=== PATIENT | female | born 1980 | race Caucasian/White ===

== ENCOUNTER 2018-08-05 10:13 | Outpatient (REF) | payer BC, SELFPAY | END 2018-08-05 10:33 | LOC: LBN 10:13 | PROVIDERS: PCP Family Medicine; Visit Provider Emergency Medicine | DX: J06.9 Acute upper respiratory infection, unspecified (principal) | CPT/HCPCS: 87449 ==

== ENCOUNTER 2018-08-27 18:08 | Emergency (ER) | payer BC, SELFPAY ==
[2018-08-27 18:32] VITALS: BP 140/93; PULSE 80; RESP 16; TEMP 36.6
--- NOTE | 2018-08-27 18:37 | W.ED.GENAD ---
Discharge Plan Disposition Patient Disposition: HOME Condition: Good Discharge Details Chief Complaint: Urinary Clinical Impression: Abdominal pain, Ovarian cyst Reason For Visit: urinary symptoms Primary Care Provider: Romaine Charles ED Provider: Miguel Henry Home Meds and New Rx's Prescriptions: Continued Centrum Complete 1 EACH tablet 1 tab-cap PO DAILY RF: 0 omega 4-ert-uut-fish oil [Fish Oil] 1,000 MG capsule 1,000 mg PO DAILY RF: 0 losartan 50 MG tablet 50 mg PO DAILY Qty: 90 RF: 4 fluoxetine 20 MG capsule 20 mg PO DAILY Qty: 90 RF: 4 valacyclovir 1,000 MG tablet 1,000 mg PO PRN PRNRF: 0 Discharge Instructions Instructions: Ovarian Cyst (ED), Abdominal Pain (ED) Additional Instructions: Your laboratory studies, urinalysis, CT scan are unremarkable. There is suggestion of a right ovarian cyst measuring about 4-1/2 cm. Use ibuprofen 4-600 mg 3 times a day with food for the next few days. Follow-up in [facility] next week. Return to emergency department if you develop fever, vomiting, worsening pain. Referrals: [facility] [place] [place] [Provider Group] Medical Decision Making Patient's urinalysis is negative for infection. She seems to be quite tender in the lower quadrants right greater than left. She is also tender suprapubic. She is not . She denies vaginal discharge or odor. For now will defer pelvic exam. Will place IV and check labs. Get CT scan the abdomen pelvis to rule out appendicitis. If everything returns negative will need to consider pelvic exam. Patient does not have an elevated white count. Hemoglobin is fine. Chemistries and belly labs are normal. CT scan shows a normal appendix. She also has normal gallbladder. She has a presumed 4.3 cm right ovarian cyst. No evidence of free fluid or rupture. Patient. She declines pelvic exam and will follow up with [facility]. She is pretty comfortable and wants to go home to eat. I do not think she has infection, torsion, ruptured cyst. We will have her use ibuprofen 3 times a day for the next few days and contact [facility] for follow-up. Lab Data Lab results reviewed: Yes I reviewed the patient's lab results. HPI General Mode of arrival: ambulatory. Date/Time Provider Initiated Documentation: 08/27/18 18:37. Limitations to Documentation: no limitations. Information obtained by: patient. HPI Narrative: Patient presents to ED with complaints of urinary urgency, frequency, abdominal pain and back pain. Symptoms started over the weekend but have got worse. Today at work she did a urine dipstick which was positive for blood and leukocytes. She does not really report dysuria although urinating causes increased pain in her abdomen and back. She does have urgency. She has had no fever or chills. She is eating and drinking fine. She has no nausea vomiting. She has no vaginal discharge or bleeding. Related Data Home Medications Medication Instructions Recorded Confirmed Centrum Complete 1 tab-cap PO DAILY tab-cap 03/23/15 08/27/18 omega 1-ggs-eul-fish oil [Fish Oil] 1,000 mg PO DAILY 07/02/16 08/27/18 fluoxetine 20 mg PO DAILY #90 tab-cap 09/05/17 08/27/18 losartan 50 mg PO DAILY #90 tab-cap 09/05/17 08/27/18 valacyclovir 1,000 mg PO PRN PRN 08/27/18 08/27/18 Previous Rx's Medication Instructions Recorded fluoxetine 20 mg PO DAILY #90 tab-cap 09/05/17 losartan 50 mg PO DAILY #90 tab-cap 09/05/17 Allergies Allergy/AdvReac Type Severity Reaction Status Date / Time oxycodone HCl [From Percocet] Allergy Intermediate HIVES, Verified 08/05/18 09:14 rash & hallucinations Review of Systems Constitutional Denies chills, Denies fever(s), Denies headache(s) and Denies weakness Eyes Denies eye discharge and Denies eye pain ENT Denies otalgia, Denies facial pain, Denies headache(s), Denies neck pain and Denies sore throat Cardiovascular Denies chest pain, Denies syncope, Denies edema and Denies dyspnea Respiratory Denies cough and Denies dyspnea Gastrointestinal Reports abdominal pain, Denies diarrhea, Denies nausea and Denies vomiting Genitourinary Denies hematuria, Reports urinary frequency, Denies genital lesions, Reports dysuria, Reports pelvic pain, Denies flank pain, Denies urinary hesitancy, Reports urinary urgency, Denies vaginal discharge and Denies vaginal odor Musculoskeletal Reports back pain, Denies neck pain and Denies numbness Integumentary/Breasts Denies rash Neurologic Denies syncope, Denies headache(s), Denies numbness and Denies weakness [facility] Medical History Abnormal Pap smear of cervix (~2009) Surgical History section Ligation of fallopian tube Family History Mother Alcohol abuse Essential hypertension Depression Heart disease Father Essential hypertension Heart disease Hyperlipidemia Sister Heart disease Sister No problems noted. Sister No problems noted. Brother Heart disease Brother Heart disease Brother Heart disease Brother Heart disease Grandfather Heart disease Neoplasm Grandfather Heart disease Myocardial infarction Grandmother Alcohol abuse Suicide Grandmother No problems noted. Son No problems noted. Daughter No problems noted. Maternal Uncle Neoplasm Social History Smoking and Tabacco status: Former Tobacco Use Exam Const General: cooperative and no acute distress Orientation: alert and oriented x3 HENMT Head: normocephalic and atraumatic Mouth: moist mucous membranes Neck Neck: normal visual inspection, trachea midline and supple Resp Effort & Inspection: normal respiratory effort Auscultation: clear to auscultation bilaterally Cardio Rate: regular rate Rhythm: regular rhythm Heart Sounds: S1 normal and S2 normal GI Inspection: normal to inspection and non-distended Palpation: soft, not firm, guarding in the LLQ and in the RLQ and tender in the LLQ, in the RLQ and suprapubicly; with no rebound tenderness and Rovsing's sign negative Back/Spine/Pelvis Back: no CVA tenderness Skin Rashes: no rashes Neuro General: alert, oriented x3, no focal motor deficits and CN's II-XI intact bilaterally Extrem General: normal to inspection and no clubbing, cyanosis or edema
--- NOTE | 2018-08-27 18:40 | ED.GENADUL_ITS ---
Discharge Plan Disposition Patient Disposition: HOME Condition: Good Discharge Details Chief Complaint: Urinary Clinical Impression: Abdominal pain, Ovarian cyst Reason For Visit: urinary symptoms Primary Care Provider: Romaine Charles ED Provider: Miguel Henry Home Meds and New Rx's Prescriptions: Continued Centrum Complete 1 EACH tablet 1 tab-cap PO DAILY RF: 0 omega 4-cdq-ssj-fish oil [Fish Oil] 1,000 MG capsule 1,000 mg PO DAILY RF: 0 losartan 50 MG tablet 50 mg PO DAILY Qty: 90 RF: 4 fluoxetine 20 MG capsule 20 mg PO DAILY Qty: 90 RF: 4 valacyclovir 1,000 MG tablet 1,000 mg PO PRN PRNRF: 0 Discharge Instructions Instructions: Ovarian Cyst (ED), Abdominal Pain (ED) Additional Instructions: Your laboratory studies, urinalysis, CT scan are unremarkable. There is suggestion of a right ovarian cyst measuring about 4-1/2 cm. Use ibuprofen 4- 600 mg 3 times a day with food for the next few days. [facility] next week. Return to emergency department if you develop fever, vo miting, worsening pain. [facility] Medical Decision Making Patient's urinalysis is negative for infection. She seems to be quite tender in the lower quadrants right greater than left. She is also tender suprapubic. She is not . She denies vaginal discharge or odor. For now will defer pelvic exam. Will place IV and check labs. Get CT scan the abdomen pelvis to rule out appendicitis. If everything returns negative will need to consider pelvic exam. Patient does not have an elevated white count. Hemoglobin is fine. Chemistries and belly labs are normal. CT scan shows a normal appendix. She also has normal gallbladder. She has a presumed 4.3 cm right ovarian cyst. No evidence of free fluid or rupture. Patient. She declines pelvic exam and will follow up with [facility]. She is pretty comfortable and wants to go home to eat. I do not think she has infection, torsion, ruptured cyst. We will have her use ibuprofen 3 times a day for the next few days and contact [facility] for follow-up. Lab Data Lab results reviewed: Yes I reviewed the patient's lab results. HPI General Mode of arrival: ambulatory . Date/Time Provider Initiated Documentation: 08/27/18 18:37 . Limitations to Documentation: no limitations . Information obtained by: patient . HPI Narrative: Patient presents to ED with complaints of urinary urgency, frequency, abdominal pain and back pain. Symptoms started over the weekend but have got worse. Today at work she did a urine dipstick which was positive for blood and leukocytes. She does not really report dysuria although urinating causes increased pain in her abdomen and back. She does have urgency. She has had no fever or chills. She is eating and drinking fine. She has no nausea vomiting. She has no vaginal discharge or bleeding. Related Data Home Medications Medication Instructions Recorded Confirmed Centrum Complete 1 tab-cap PO DAILY tab-cap 03/23/15 08/27/18 omega 2-xtq-lem-fish oil [Fish Oil] 1,000 mg PO DAILY 07/02/16 08/27/18 fluoxetine 20 mg PO DAILY #90 tab-cap 09/05/17 08/27/18 losartan 50 mg PO DAILY #90 tab-cap 09/05/17 08/27/18 valacyclovir 1,000 mg PO PRN PRN 08/27/18 08/27/18 Previous Rx's Medication Instructions Recorded fluoxetine 20 mg PO DAILY #90 tab-cap 09/05/17 losartan 50 mg PO DAILY #90 tab-cap 09/05/17 Allergies Allergy/AdvReac Type Severity Reaction Status Date / Time oxycodone HCl [From Percocet] Allergy Intermediate HIVES, Verified 08/05/18 09:14 rash & hallucinations Review of Systems Constitutional Denies chills, Denies fever(s), Denies headache(s) and Denies weakness Eyes Denies eye discharge and Denies eye pain ENT Denies otalgia, Denies facial pain, Denies headache(s), Denies neck pain and Denies sore throat Cardiovascular Denies chest pain, Denies syncope, Denies edema and Denies dyspnea Respiratory Denies cough and Denies dyspnea Gastrointestinal Reports abdominal pain, Denies diarrhea, Denies nausea and Denies vomiting Genitourinary Denies hematuria, Reports urinary frequency, Denies genital lesions, Reports dysuria, Reports pelvic pain, Denies flank pain, Denies urinary hesitancy, Reports urinary urgency, Denies vaginal discharge and Denies vaginal odor Musculoskeletal Reports back pain, Denies neck pain and Denies numbness Integumentary/Breasts Denies rash Neurologic Denies syncope, Denies headache(s), Denies numbness and Denies weakness PFSH Medical History Abnormal Pap smear of cervix (~2009) Surgical History section Ligation of fallopian tube Family History Mother Alcohol abuse Essential hypertension Depression Heart disease Father Essential hypertension Heart disease Hyperlipidemia Sister Heart disease Sister No problems noted. Sister No problems noted. Brother Heart disease Brother Heart disease Brother Heart disease Brother Heart disease Grandfather Heart disease Neoplasm Grandfather Heart disease Myocardial infarction Grandmother Alcohol abuse Suicide Grandmother No problems noted. Son No problems noted. Daughter No problems noted. Maternal Uncle Neoplasm Social History Smoking and Tabacco status: Former Tobacco Use Exam Const General: cooperative and no acute distress Orientation: alert and oriented x3 HENMT Head: normocephalic and atraumatic Mouth: moist mucous membranes Neck Neck: normal visual inspection, trachea midline and supple Resp Effort & Inspection: normal respiratory effort Auscultation: clear to auscultation bilaterally Cardio Rate: regular rate Rhythm: regular rhythm Heart Sounds: S1 normal and S2 normal GI Inspection: normal to inspection and non-distended Palpation: soft, not firm, guarding in the LLQ and in the RLQ and tender in the LLQ, in the RLQ and suprapubicly; with no rebound tenderness and Rovsing's sign negative Back/Spine/Pelvis Back: no CVA tenderness Skin Rashes: no rashes Neuro General: alert, oriented x3, no focal motor deficits and CN's II-XI intact bilaterally Extrem General: normal to inspection and no clubbing, cyanosis or edema
[2018-08-27 18:41] LABS: Bilirubin Negative (Negative); Blood Negative (Negative); Clarity Clear; Glucose Negative (Negative); Ketones Negative (Negative); Leukocyte Esterase Trace (Negative); Nitrite Negative (Negative)
[2018-08-27 19:08] LABS: Bacteria Few HPF (Negative); C & S Indicated? No; Casts Negative LPF (Negative); Crystals Negative HPF (Negative); Epithelial Cells Moderate HPF (Negative); Mucus Negative (Negative); Other Cells Negative (Negative); RBC Negative (0-2)
[2018-08-27 19:51] LABS: Abs Immature Grans 0.03 k/cumm (0.0-0.09); Absolute Basophil Count 0.02 k/cumm (0.0-0.2); Absolute Lymphocyte Count 2.66 k/cumm (1.2-3.4); Absolute Monocyte Count 0.53 k/cumm (0.11-0.7); Absolute Neutrophil Count 4.86 k/cumm (1.2-6.7); Basophils % 0.2; Eosinophils % 2.4; HCT 42.6 % (36.0-46.0); HGB 14.6 g/dL (12.0-15.5); Immature Grans % 0.4; Mean Corp. HGB Concentration 34.3 g/dL (32.0-36.0); Mean Corpuscular Hemoglobin 33.3 pg (27.0-33.0); Mean Platelet Volume 9.5 fL (8.0-11.0); Monocytes % 6.4; Neutrophils % 58.6; Platelet Count 188 x1000/uL (130-400); RBC 4.39 m/cumm (4.00-5.20); RBC Distribution Width 12.2 % (11.7-14.6)
[2018-08-27 20:05] LABS: ALT 65 U/L (12-78); AST 33 U/L (15-37); Albumin 4.3 g/dL (3.4-5.0); Alkaline Phosphatase 77 U/L (46-116); Anion Gap 8.8 mmol/L (3-11); BUN 13 mg/dL (7-18); Bilirubin, Total 0.4 mg/dL (0.2-1.0); CO2 27.2 mmol/L (21.0-32.0); Chloride 102 mmol/L (98-107); Glucose 99 mg/dL (70-100); Lipase 230 U/L (73-393); Sodium 138 mmol/L (136-145); Total Protein 8.1 g/dL (6.4-8.2)
[2018-08-27 20:10] LABS: Calcium 9.7 mg/dL (8.5-10.1)
[2018-08-27] MEDS: Omnipaque 350 MG/ML 100 ML BTL IJ (20:23)
--- NOTE | 2018-08-27 20:26 | DI.CT_ITS ---
SYMPTOM/DIAGNOSIS: LOW ABDOMINAL PAIN WITH RLQ TENDERNESS CT ABDOMEN AND PELVIS: CT of the abdomen and pelvis was performed following the uneventful administration of intravenous contrast material. The visualized lung bases are clear. The liver is normal in size. No suspicious hepatic mass is seen. The portal, superior mesenteric and splenic veins are patent. The gallbladder appears contracted but no stones are seen. The biliary duct is unremarkable. The pancreas and spleen are unremarkable. There is a 1.1 cm low attenuation nodule on the left adrenal gland likely reflecting a benign lesion such as an adenoma. The right adrenal gland is unremarkable. The kidneys show normal and symmetric enhancement. No evidence of a solid renal mass or obstruction. The urinary bladder is intact. The reproductive organs are unremarkable except for a 4.3 cm right adnexal cyst likely ovarian. The bowel shows no evidence of obstruction or inflammation. There is a normal appendix present. The abdominal aorta is of normal caliber. No significant abdominal or pelvic adenopathy, ascites or pneumoperitoneum is seen. No acute osseous abnormalities identified. IMPRESSION: 4.3 cm right adnexal cystic lesion likely ovarian in origin. Follow up as clinically appropriate.
[2018-08-27 20:37] VITALS: BP 143/80; PULSE 90; RESP 16; TEMP 37; O2SAT 98
--- NOTE | 2018-08-27 20:43 | DI.VRAD_ITS ---
EXAM: CT Abdomen and Pelvis With Contrast EXAM DATE/TIME: 08/27/2018 7:38 PM CLINICAL HISTORY: 37 years old, female; Pain; Abdominal pain; Localized; Right lower quadrant (rlq); Prior surgery; Surgery date: 6+ months; Surgery type: Tubal ligation, TECHNIQUE: Axial computed tomography images of the abdomen and pelvis with intravenous contrast. All CT scans at this facility use at least one of these dose optimization techniques: automated exposure control; mA and/or kV adjustment per patient size (includes targeted exams where dose is matched to clinical indication); or iterative reconstruction. Coronal and sagittal reformatted images were created and reviewed. CONTRAST: Contrast Material: 100 ml of [id number]; Contrast Route: iv COMPARISON: US PELVIS TRANSVAG 09/23/2017 3:40 PM FINDINGS: Lower thorax: No acute findings. ABDOMEN: Liver: Hepatic steatosis. Gallbladder and bile ducts: Normal. No calcified stones. No ductal dilation. Pancreas: Normal. No ductal dilation. Spleen: Normal. No splenomegaly. Adrenals: Normal. No mass. Kidneys and ureters: Normal. No hydronephrosis. Stomach and bowel: Normal. No obstruction. No mucosal thickening. Appendix: No evidence of appendicitis. PELVIS: Bladder: Unremarkable as visualized. Reproductive: 4.3 cm right ovarian cyst suggested. ABDOMEN and PELVIS: Intraperitoneal space: Normal. No free air. No significant fluid collection. Bones/joints: No acute fracture. No dislocation. Soft tissues: Unremarkable. Vasculature: Normal. No abdominal aortic aneurysm. Lymph nodes: Normal. No enlarged lymph nodes. IMPRESSION: 4.3 cm right ovarian cyst suggested. Dictated and Authenticated by: Faisal Fields MD. Ordering:MARCIA Rivera MD
[2018-08-27 21:05] VITALS: BP 126/75; PULSE 90; RESP 16; TEMP 37; O2SAT 98
== END 2018-08-27 21:08 | disposition home or self-care (01) ==
PROVIDERS: Emergency Provider Emergency Medicine; PCP Family Medicine
DX: N83.201 Unspecified ovarian cyst, right side (principal); R10.30 Lower abdominal pain, unspecified
CPT/HCPCS: 36415; 80053; 81025; 83690; 99285; 74177; 81003; 81015; 85025; 99283; J3490

== ENCOUNTER 2020-03-17 10:27 | Outpatient (REF) | payer BC, SELFPAY ==
--- NOTE | 2020-03-17 10:00 | PAPFT_PTH ---
PATIENT: Laura Hobbs LOC: [facility] U#:[id number] AGE/SX: 39/F ROOM: RE03/17/[address]: DILLON Sarmiento : 1980 BED: DIS: 03/17/2020 SPEC #: [id number] RECD: 03/17/20 12:50 STATUS: BRODIE REQ #: [id number] ELIZABETH: 03/17/20 10:[address]: Jazlyn Brown DEPT: [facility] Cytology RECD BY: Rhonda Lopez ENTERED: 03/17/20 12:51 SP TYPE: PAPFT OT DR: DILLON Garza Tissues: 1 - CX/ENDOCX FOR PAP SMEARS Procedures: PAP THIN PREP/UVM Screening HPV DNA PROBE Comments: [id number]
== END 2020-03-17 10:47 ==
LOC: LBN 10:27
PROVIDERS: PCP Nurse Practitioner Family; Visit Provider Nurse Practitioner Family
DX: Z12.4 Encounter for screening for malignant neoplasm of cervix (principal); Z11.51 Encounter for screening for human papillomavirus (HPV)
CPT/HCPCS: 88142; 87624

== ENCOUNTER → 2020-03-18 03:19 | Outpatient (CLI) | payer BC, SELFPAY ==
[2020-03-18 15:48] LABS: HCT 39.4 % (36.0-46.0); HGB 13.2 g/dL (11.2-15.7); MCH 32.8 pg (27.0-33.0); MCHC 33.5 % (32.0-36.0); MPV 9.3 fL (8.0-11.0); Platelet Count 214 10^3/uL (130-400); RBC 4.02 10^6/uL (3.93-5.22); RDW 11.2 % (11.7-14.6); RDW-SD 40.4 fL; WBC 7.26 10^3/uL (4.4-10.8)
[2020-03-18 16:57] LABS: Anion Gap 6.1 mmol/L (3-11); BUN 12 mg/dL (7-18); CO2 28.9 mmol/L (21.0-32.0); CREATININE 0.74 mg/dL (0.55-1.02); Calcium 8.8 mg/dL (8.5-10.1); Calculated LDL 65 mg/dL (<100); Chloride 103 mmol/L (98-107); Cholesterol 163 mg/dL (<200); Glucose 124 mg/dL (74-106); HDL Cholesterol 42 mg/dL (40-60); Potassium 3.7 mmol/L (3.5-5.1); Sodium 138 mmol/L (136-145); TSH (W/Ref FT4) 1.02 uIU/mL (0.36-3.74); Triglyceride 283 mg/dL (<150)
[2020-03-18 19:00] LABS: Hemoglobin A1C 5.3 % (<5.7)
== END ==
PROVIDERS: Nurse Practitioner Family; PCP Nurse Practitioner Family; Visit Provider Nurse Practitioner Family
DX: I10 Essential (primary) hypertension (principal); N92.0 Excessive and frequent menstruation with regular cycle; E66.9 Obesity, unspecified
CPT/HCPCS: 36415; 80048; 80061; 85027; 83036; 84443

== ENCOUNTER 2020-03-28 00:45 | Outpatient (CLI) | payer BC, SELFPAY ==
--- NOTE | 2020-03-28 07:30 | DI.US_ITS ---
EXAM: US PELVIS TRANSVAGINAL CLINICAL HISTORY: Heavy and long periods,menorrhagia,n92.0. TECHNIQUE: Transabdominal and transvaginal pelvic ultrasound was performed using standard protocol. COMPARISON: US PELVIS TRANSVAG from 09/23/2017 FINDINGS: KIDNEYS: Kidneys are symmetric in size. No evidence of renal calculi. No evidence of hydronephrosis. No renal mass or cyst identified. Liver: Visualized images of the liver show increased echogenicity suggesting fatty infiltration. UTERUS: Position: Anteverted. Size: 8.8 long by 5.2 AP by 4.6 transverse cm Endometrium: 0.9 cm. Normal for patient's menstrual status. Myometrium: Unremarkable. Cervix: Unremarkable. OVARIES: Right: 3.3 x 2.0 x 2.5 cm Cyst or mass: Follicular cysts. The largest is a 2.7 cm simple cyst. Left: 2.8 x 1.8 x 1.6 cm Cyst or mass: None. DOPPLER: Color: Symmetric and uniform flow to both ovaries. No hyperemia. Duplex: Normal ovarian arterial waveforms visualized. CUL-DE-SAC: Free fluid: None. Other: None. IMPRESSION: 1. Normal sonographic appearance of the kidneys. 2. Normal-appearing uterus with endometrial stripe within normal limits. 3. Unremarkable bilateral ovaries. 4. Fatty infiltration of the liver. DATA REPOSITORY:
== END 2020-03-28 01:05 ==
PROVIDERS: PCP Nurse Practitioner Family; Visit Provider Nurse Practitioner Family
DX: N92.0 Excessive and frequent menstruation with regular cycle (principal)
CPT/HCPCS: 76830; 76856

== ENCOUNTER 2020-03-31 12:52 | Outpatient (REF) | payer BC, SELFPAY ==
--- NOTE | 2020-03-31 11:00 | ENDOMET_PTH ---
PATIENT: Laura Hobbs LOC: [facility] U#:[id number] AGE/SX: 39/F ROOM: RE03/31/[address]: Jaelyn Holcomb DO : 1980 BED: DIS: 03/31/2020 SPEC #: [id number] RECD: 03/31/20 12:59 STATUS: BRODIE REQ #: [id number] ELIZABETH: 03/31/20 11:[address]: Jaleyn Holcomb DEPT: Surgical Specimen RECD BY: Rhonda Lopez ENTERED: 03/31/20 12:59 SP TYPE: Endomet OTHR DR: DILLON Garza Tissues: 1 - ENDOMETRIUM BX/DANIELE Procedures: GROSS AND MICRO LEVEL 4 Comments: [id number]
== END 2020-03-31 13:12 ==
LOC: LBN 12:52
PROVIDERS: PCP Nurse Practitioner Family; Visit Provider Obstetrics & Gynecology
DX: N93.9 Abnormal uterine and vaginal bleeding, unspecified (principal)
CPT/HCPCS: 88305

== ENCOUNTER → 2020-04-22 02:07 | Outpatient (CLI) | payer BC, SELFPAY ==
[2020-04-22 13:42] LABS: Abs Immature Grans 0.02 10^3/uL (0.0-0.06); Absolute Basophil Count 0.03 10^3/uL (0.0-0.2); Absolute Eosinophil Count 0.15 10^3/uL (0.0-0.7); Absolute Lymphocyte Count 2.14 10^3/uL (1.2-3.4); Absolute Monocyte Count 0.45 10^3/uL (0.1-0.8); Absolute Neutrophil Count 4.39 10^3/uL (1.2-6.7); Basophils % 0.4; Eosinophils % 2.1; HCT 41.5 % (36.0-46.0); HGB 13.9 g/dL (11.2-15.7); Immature Grans % 0.3; Lymphocytes % 29.8; MCH 32.6 pg (27.0-33.0); MCHC 33.5 % (32.0-36.0); MCV 97.4 fL (80-95); MPV 9.7 fL (8.0-11.0); Monocytes % 6.3; Neutrophils % 61.1; Nucleated RBC 0 %; Platelet Count 197 10^3/uL (130-400); RBC 4.26 10^6/uL (3.93-5.22); RDW 11.2 % (11.7-14.6); RDW-SD 39.8 fL; WBC 7.18 10^3/uL (4.4-10.8)
[2020-04-24 11:21] LABS: SARS-CoV-2 RNA Not Detected (NotDetected); SARS-CoV-2 RNA Source Nasal/Nares
== END ==
PROVIDERS: PCP Nurse Practitioner Family; Visit Provider Obstetrics & Gynecology
DX: N93.9 Abnormal uterine and vaginal bleeding, unspecified (principal); Z11.59 Encounter for screening for other viral diseases; Z01.818 Encounter for other preprocedural examination; Z01.812 Encounter for preprocedural laboratory examination
CPT/HCPCS: 36415; 86850; 86900; 86901; U0003; 85025

== ENCOUNTER 2020-04-27 06:17 | Inpatient (IN) | payer BC, SELFPAY ==
[2020-04-27] VITALS (16 sets, daily range): BP systolic 89–121; BP diastolic 49–80; PULSE 58–99; RESP 11–20; TEMP 36–37; O2SAT 94–99
[2020-04-27] MEDS: Lactated Ringers 1,000 ML 125 ML IV ×2 (07:05→13:48)
[2020-04-27] MEDS: ceFAZolin 2 GM/50 ML BAG IVPB (07:59)
--- NOTE | 2020-04-27 10:10 | UTER_PTH ---
PATIENT: Laura Hobbs LOC: [facility] U#:[id number] AGE/SX: 39/F ROOM: OBS.306 RE04/27/[address]: Jaelyn Holcomb DO : 1980 BED: A DIS: 04/28/2020 SPEC #: [id number] RECD: 04/27/20 12:57 STATUS: [place] REQ #: [id number] ELIZABETH: 04/27/20 10:[address]: Jaelyn Holcomb DEPT: Surgical Specimen RECD BY: Rhonda Lopez ENTERED: 04/27/20 12:58 SP TYPE: UTER OTHR DR: DILLON Garza Tissues: 1 - UTERUS W OR W/O OVARIES(NOT TUMOR/PROLAPSE) Procedures: GROSS AND MICRO LEVEL 5 Comments: [id number]
--- NOTE | 2020-04-27 11:12 | W.PM.OP ---
Date of service: 04/27/20 Time of Service: 11:12 Operative Note Operative Note DATE OF PROCEDURE: 04/27/20 PRE-OP DIAGNOSIS: DUB, Pelvic pain POST-OP DIAGNOSIS: same PROCEDURE: Laparoscopic assisted vaginal hysterectomy with bilateral salpingectomy SURGEON: Jaelyn Holcomb ASSISTING SURGEON: Shey Menjivar ANESTHESIA: GETA and spinal ESTIMATED BLOOD LOSS: 350 PATHOLOGY: other (Bilateral tubes, uterus, cervix) COMPLICATIONS: None Patient was transported to: PACU Patient's condition: stable Indications: Ongoing abnormal uterine bleeding Findings: Globular uterus, normal-appearing ovaries, remnant of fallopian tubes bilaterally Procedure Description: Patient is a 39-year-old female with ongoing abnormal uterine bleeding. She has tried numerous outpatient therapies and medical management and wishes definitive therapy. The risk benefits and alternatives of procedure have been explained to the patient including risk of infection, bleeding, injury to surrounding organs, risk of anesthesia, risk of thromboembolism, need for open laparotomy. Full informed consent was obtained. Patient was taken the operating suite with an IV running where she was placed in the seated position and spinal anesthesia administered. She was then placed in dorsal supine position and endotracheal intubation performed for administration of general anesthesia with ease. She was then placed in the modified dorsolithotomy position prepped and draped in the usual sterile fashion. Exam under anesthesia revealed a uterus that was midline and mobile without evidence of mass. She does have very narrow pelvic arch and significant amount of soft tissue surrounding in the abdomen and pelvis. At this point weighted speculum was placed and single-tooth tenaculum used to grasp the anterior lip of the cervix. Cervical os dilated the point that a ZUMI uterine manipulator could be placed. Tenaculum and speculum were removed Bautista catheter was inserted. At this point attention was then turned to the abdomen. Incision was made at the umbilicus and varies needle directly inserted into the abdomen. This allowed creation of a pneumoperitoneum to the maximum pressure of 15 mmHg. After pneumoperitoneum was created a bladeless 5?12 Visiport sleeve and trocar were placed directly into the abdomen. This allowed inspection of the entire abdomen which was atraumatic. A second and third right and left lower quadrant trocar site were placed under direct visualization. At this point the uterus was elevated the remnant of the fallopian tube on the left and on the right were elevated and cautery transected. These were removed from the abdomen. At this point attention was turned to the left round ligament which was cauterized and transected allowing visualization of the broad ligament. The left utero-ovarian ligament was identified and cautery transected. The remainder of the broad ligament was opened and the anterior leaf extended for creation of the bladder flap anteriorly. Similar procedure was carried out on the right round ligament, right utero-ovarian ligament and the remainder of the bladder flap. With all pedicles hemostatic attention was then turned to the vagina. Pneumoperitoneum was released and weighted speculum placed into the posterior vaginal vault. Niall clamps were used to grasp the anterior and posterior cervix and a circumferential incision was made with the cautery. Posterior cul-de-sac was opened sharply and weighted speculum placed within. The right and left uterosacral cardinal complexes were grasped transected and ligated. Attention was then turned to the right uterine artery pedicles which were clamped transected and ligated in a similar procedure carried out on the left. Attention at this point was turned to the anterior cul-de-sac which was entered sharply. Peritoneum identified and the remainder of the uterine pedicles clamped transected and sutured bilaterally. This allowed the uterus and cervix to be delivered through the vaginal vault. At this point pedicles were inspected and found to be hemostatic. Vaginal cuff was closed using 0 Vicryl suture in a running locked fashion. Vaginal cuff appeared hemostatic. At this point attention was then returned to the abdomen where pneumoperitoneum was recreated. The abdomen was irrigated with copious amounts of normal saline there was one area at each uterine artery pedicle which was nonhemostatic which was clipped with a single clip under direct visualization. There was a small amount of ooze at the peritoneal surface of the vaginal cuff which was cauterized with Surgicel. Pneumoperitoneum released and again the pedicles were inspected and found to be hemostatic. Attention was turned to the ureters which were normally peristalsing far out of the surgical tomlinson. At this point all instruments were removed as pneumoperitoneum was deflated. The fascial incision at the umbilicus was closed with 0 Vicryl suture in a simple interrupted fashion. Skin edge reapproximated with 4-0 Monocryl suture and Steri-Strips were placed. Patient was then returned to dorsal supine position awoke from anesthesia with ease. Findings #1 normal ovaries #2 evidence of previous tubal ligation #3 globular bulky uterus EBL: 350 Complications: None apparent Pathology: Bilateral tubes, uterus, cervix for examination.
[2020-04-27] MEDS: ACETAMINOPHEN 1,000 MG/100 ML BTL 400 MG IVPB (12:20)
[2020-04-27] MEDS: Cellulose,Oxidized 4X8 1 PACKET MC (13:21)
--- NOTE | 2020-04-27 14:00 | NUR.NOTE ---
1240 Pt admitted to 306 from OR via stretcher. IV LR at 125/hr patent without redness or edema 3 dsg on abd sl oozing noted sm vaginal dischg noted jarrett draining clear yellow urine scds on Report given to Yuli Fuller Note:
--- NOTE | 2020-04-27 16:22 | W.PM.PROGNOT ---
Date of Service Date of service: 04/27/20 Time of Service: 16:22 Assessment and Plan Assessment and plan (1) S/P laparoscopic assisted vaginal hysterectomy (LAVH): Status: Acute Assessment and plan: Postoperative day #0. Routine postoperative care. Ambulate, incentive spirometry. Recheck CBC in the morning. Anticipate discharge home tomorrow. Subjective Subjective Interval history since last seen: Patient seen postoperative day #0 status post laparoscopically assisted vaginal hysterectomy. She is sitting up in a chair this evening doing well. She is hungry. She has had no nausea or vomiting. She does have some itching from her spinal. Exam Narrative Exam Narrative: Doing well, pain controlled, asymptomatic Eyes General: appearance normal, both eyes and all related structures Resp Effort & Inspection: normal respiratory effort GI Inspection: normal to inspection Palpation: soft, not firm and no guarding Extrem General: clubbing, cyanosis or edema noted Objective Last Vital Signs Temp 98.2 F 04/27/20 15:49 Pulse 72 04/27/20 15:49 Resp 14 04/27/20 15:49 BP 107/63 04/27/20 15:49 Pulse Ox 96 04/27/20 15:49
[2020-04-27] MEDS: diphenhydrAMINE 50 MG/ML VIAL 25 MG IVP ×2 (16:49→22:21)
[2020-04-27] MEDS: Normal Saline Flush 10 ML SYR IV (16:50)
[2020-04-27] MEDS: Ketorolac 15 MG/ML VIAL IVP (18:25)
[2020-04-27] MEDS: Losartan 50 MG TAB 25 MG PO (22:20)
[2020-04-27] MEDS: Docusate Sodium 100 MG CAP PO (22:21)
[2020-04-28] MEDS: Ketorolac 15 MG/ML VIAL IVP ×3 (00:14→11:09)
[2020-04-28] MEDS: Normal Saline Flush 10 ML SYR IV (00:15)
[2020-04-28 00:20] VITALS: BP 118/68; PULSE 99; RESP 18; TEMP 36.6
[2020-04-28 05:00] VITALS: BP 128/76; PULSE 65; RESP 18; TEMP 36.5; O2SAT 96
[2020-04-28] MEDS: HYDROcodone 5/Acetaminophen 325 TAB PO ×3 (05:21→15:58)
[2020-04-28 06:11] LABS: Abs Immature Grans 0.03 10^3/uL (0.0-0.06); Absolute Basophil Count 0.02 10^3/uL (0.0-0.2); Absolute Lymphocyte Count 2.09 10^3/uL (1.2-3.4); Absolute Monocyte Count 0.84 10^3/uL (0.1-0.8); Basophils % 0.2; HGB 12.3 g/dL (11.2-15.7); Immature Grans % 0.2; Lymphocytes % 17.2; MCH 32.9 pg (27.0-33.0); MCHC 34.2 % (32.0-36.0); MCV 96.3 fL (80-95); MPV 9.6 fL (8.0-11.0); Monocytes % 6.9; Neutrophils % 75.5; Nucleated RBC 0 %; Platelet Count 217 10^3/uL (130-400); RBC 3.74 10^6/uL (3.93-5.22); RDW 11.1 % (11.7-14.6); RDW-SD 39.2 fL; WBC 12.14 10^3/uL (4.4-10.8)
[2020-04-28 06:14] LABS: Absolute Neutrophil Count 9.17 10^3/uL (1.2-6.7)
--- NOTE | 2020-04-28 08:19 | W.PM.PROGNOT ---
Date of Service Date of service: 04/28/20 Time of Service: 09:01 Assessment and Plan Assessment and plan (1) S/P laparoscopic assisted vaginal hysterectomy (LAVH): Status: Acute Assessment and plan: Doing well. No issues. Stable post op course Subjective Subjective Patient reports: no new complaints, no bowel movement and afebrile Interval history since last seen: Doing well. Good pain control. Passing flatus Exam Const General: cooperative, comfortable and no acute distress Nutritional Appearance: well nourished Orientation: alert and oriented x3 Eyes General: appearance normal, both eyes and all related structures Resp Effort & Inspection: normal respiratory effort Cardio Rate: regular rate Rhythm: regular rhythm GI Inspection: normal to inspection Palpation: soft Auscultation: normal bowel sounds Skin General skin exam: no rashes or lesions noted Extrem General: no clubbing, cyanosis or edema and no calf tenderness Objective Last Vital Signs Temp 97.7 F 04/28/20 05:00 Pulse 65 04/28/20 05:00 Resp 18 04/28/20 05:00 BP 128/76 04/28/20 05:00 Pulse Ox 96 04/28/20 05:00 Laboratory Results - last 24 hr 04/28/20 06:06 WBC 12.14 H RBC 3.74 L Hgb 12.3 Hct 36.0 MCV 96.3 H MCH 32.9 MCHC 34.2 RDW 11.1 L Plt Count 217 MPV 9.6 Immature Gran % 0.2 Neutrophils % 75.5 Lymphocytes % 17.2 Monocytes % 6.9 Eosinophils % 0.0 Basophils % 0.2 Nucleated RBC % 0 Absolute Neutrophils 9.17 H Absolute Lymphocytes 2.09 Absolute Monocytes 0.84 H Absolute Eosinophils 0.00 Absolute Basophils 0.02
[2020-04-28] MEDS: FLUoxetine 20 MG CAP 40 MG PO (08:26)
[2020-04-28] MEDS: Docusate Sodium 100 MG CAP PO (08:26)
[2020-04-28 08:37] VITALS: BP 117/73; PULSE 65; RESP 18; TEMP 36.7; O2SAT 98
--- NOTE | 2020-04-28 11:38 | W.PM.DSUDISC ---
Discharge Plan Disposition Patient Disposition: HOME Condition: Good Discharge Details Reason For Visit: STATUS POST LAVH Admit Date/Time: 04/27/20 06:17 Admit Provider: Jaelyn Holcomb Attending Provider: Jaelyn Holcomb Primary [facility]: [facility] Hospital Course: Patient underwent an uncomplicated LAVH on 04/27/2020. She had an uncomplicated post- op course. She was discharged to home post op day #1 Home Meds and New Rx's Prescriptions: New acetaminophen [Tylenol] 325 mg Tablet 650 mg PO Q4H PRN PRN (Reason: Pain) Qty: 30 RF: 0 hydrocodone-acetaminophen 5-325 mg Tablet 1 tab PO Q4H PRN PRN (Reason: Pain) Qty: 10 RF: 0 docusate sodium [Colace] 100 mg Capsule 100 mg PO BID Qty: 30 RF: 0 simethicone 80 mg Tablet,Chewable 80 mg PO Q4H PRN PRNQty: 30 RF: 0 ibuprofen 800 mg tablet 800 mg PO Q8H PRNQty: 30 RF: 1 Continued fluoxetine 40 mg capsule 40 mg PO DAILY Qty: 90 RF: 4 valacyclovir 1 gram tablet 2,000 mg PO ONCE PRN (Reason: cold sores) Qty: 60 RF: 2 nicotine 7 mg/24 hr patch 24 hour 1 patch TD DAILY Qty: 14 RF: 6 losartan 50 mg tablet 25 mg PO .EVENING RF: 0 triamcinolone acetonide 0.5 % cream 1 applic topical BID Qty: 15 RF: 0 Centrum Complete 1 EACH tablet 1 tab-cap PO DAILY RF: 0 omega 8-kul-rxf-fish oil [Fish Oil] 1,000 MG capsule 1,000 mg PO DAILY RF: 0 Discharge Instructions Additional Instructions: Pelvic Rest for 6 weeks No heavy lifting for 6 weeks Stand Alone Forms: DSU Post Gynecology Surgery Activity:: Activity as Tolerated Equipment/Supplies:: No Equipment Needed Diet:: Normal Diet Discharge Orders Discharge Orders: Discharge Order (Routine); Ordered 04/28/20 Ordered By: Jaelyn Holcomb DS: Diagnosis Discharge Diagnosis (1) S/P laparoscopic assisted vaginal hysterectomy (LAVH): Status: Acute
--- NOTE | 2020-04-28 11:53 | DSE_ITS ---
Date of service: 04/28/20 Time of Service: 11:53 DS: Diagnosis Discharge Diagnosis (1) S/P laparoscopic assisted vaginal hysterectomy (LAVH): Status: Acute Discharge Plan Disposition Patient Disposition: HOME Condition: Good Discharge Details Reason For Visit: STATUS POST LAVH Admit Date/Time: 04/27/20 06:17 Admit Provider: Jaelyn Holcomb Attending Provider: Jaelyn Holcomb Primary Care Provider: [facility] Course Hospital Course: Patient underwent an uncomplicated LAVH on 04/27/2020. She had an uncomplicated post- op course. She was discharged to home post op day #1 Home Meds and New Rx's Prescriptions: New acetaminophen [Tylenol] 325 mg Tablet 650 mg PO Q4H PRN PRN (Reason: Pain) Qty: 30 RF: 0 hydrocodone-acetaminophen 5-325 mg Tablet 1 tab PO Q4H PRN PRN (Reason: Pain) Qty: 10 RF: 0 docusate sodium [Colace] 100 mg Capsule 100 mg PO BID Qty: 30 RF: 0 simethicone 80 mg Tablet,Chewable 80 mg PO Q4H PRN PRNQty: 30 RF: 0 ibuprofen 800 mg tablet 800 mg PO Q8H PRNQty: 30 RF: 1 Continued fluoxetine 40 mg capsule 40 mg PO DAILY Qty: 90 RF: 4 valacyclovir 1 gram tablet 2,000 mg PO ONCE PRN (Reason: cold sores) Qty: 60 RF: 2 nicotine 7 mg/24 hr patch 24 hour 1 patch TD DAILY Qty: 14 RF: 6 losartan 50 mg tablet 25 mg PO .EVENING RF: 0 triamcinolone acetonide 0.5 % cream 1 applic topical BID Qty: 15 RF: 0 Centrum Complete 1 EACH tablet 1 tab-cap PO DAILY RF: 0 omega 1-zrh-omg-fish oil [Fish Oil] 1,000 MG capsule 1,000 mg PO DAILY RF: 0 Discharge Instructions Additional Instructions: Pelvic Rest for 6 weeks No heavy lifting for 6 weeks Stand Alone Forms: DSU Post Gynecology Surgery Activity:: Activity as Tolerated Equipment/Supplies:: No Equipment Needed Diet:: Normal Diet Discharge Orders Discharge Orders: Discharge Order (Routine); Ordered 04/28/20 Ordered By: Jaelyn Holcomb DS: Summary Summary Time spent discussing smoking cessation with patient: 3 to 10 minutes Status at Discharge Functional status at discharge: independent ambulation Overall status at discharge: patient is progressing back to baseline Mental Status: mental status grossly normal Speech and Movement: speech and movement normal Mood: congruent mood Affect: normal affect Time Spent with Patient providing and/or coordinating discharge services: Less than 30 minutes Exam Narrative Exam Narrative: See physical exam dated 04/28/2020 Psych Mental Status: mental status grossly normal Speech and Movement: speech and movement normal Mood: congruent mood Affect: normal affect DS: Data Vitals/I&O Vitals and I&O: Vital Signs Temperature 98.1 F 04/28/20 08:37 Temperature Source Oral 04/28/20 08:37 Pulse 65 04/28/20 08:37 Pulse Rhythm Regular 04/28/20 08:37 Respiratory Rate 18 04/28/20 08:37 Respiratory Effort 04/28/20 08:37 Respiratory Depth Normal 04/28/20 08:37 Respiratory Pattern Normal 04/28/20 08:37 Blood Pressure 117/73 04/28/20 08:37 Pulse Oximetry 98 04/28/20 08:37 Respiratory End-tidal CO2 41 04/27/20 11:34 Oxygen Delivery Method Room Air 04/28/20 08:37 Oxygen Flow Rate 0 04/28/20 08:37 Pain Level 3 04/28/20 08:37 Comment 04/27/20 14:18 Intake & Output 04/27/20 04/27/20 04/28/20 11:59 23:59 11:59 Intake Total 1050 / 4739.25 3689.25 / 4739.25 600 / 600 Output Total 675 / 3675 3000 / 3675 1200 / 1200 Balance 375 / 1064.25 689.25 / 1064.25 -600 / -600 Weight 214 lb 3.2 oz Intake: IV 1050 / 2489.25 1439.25 / 2489.25 Oral 2250 / 2250 600 / 600 Output: Urine 325 / 3325 3000 / 3325 1200 / 1200 Estimated Blood Loss 350 / 350 Other: Urine Color Yellow Yellow Pale Urine Appearance Clear Clear Urine Odor None Comment voiding quantity sufficient Emesis Description None None Voiding Methods Toilet Data Completed and Pending Labs on day of discharge: Labs from last 24 hours 04/28/20 06:06 WBC 12.14 H RBC 3.74 L Hgb 12.3 Hct 36.0 MCV 96.3 H MCH 32.9 MCHC 34.2 RDW 11.1 L Plt Count 217 MPV 9.6 Immature Gran % 0.2 Neutrophils % 75.5 Lymphocytes % 17.2 Monocytes % 6.9 Eosinophils % 0.0 Basophils % 0.2 Nucleated RBC % 0 Absolute Neutrophils 9.17 H Absolute Lymphocytes 2.09 Absolute Monocytes 0.84 H Absolute Eosinophils 0.00 Absolute Basophils 0.02 PFSH Medical History (Updated 04/25/20 @ 13:24 by Marcus Mcmillan) Abnormal Pap smear of cervix (2007) LSIL, +HPV 09/22, 06/25, 05/25, 09/24 ASCUS, -HPV 08/2011 Negative Pap, +HPV 08/2017 Abnormal uterine bleeding Cigarette smoker Depressive disorder Essential hypertension Fracture of left ankle Idiopathic scoliosis Pt. denies this Obesity Sensorineural hearing loss of left ear High-frequency only. Chronic tinnitus Surgical History (Updated 04/27/20 @ 16:24 by Jaelyn Holcomb DO) History of section (06/06/10) S/P laparoscopic assisted vaginal hysterectomy (LAVH) S/P tubal ligation (10/11/10) Status post ORIF of fracture of ankle (06/16/15) Left ankle Family History Mother Alcohol abuse Essential hypertension Depression Heart disease Father Essential hypertension Heart disease Hyperlipidemia Sister No problems noted. Sister No problems noted. Son No problems noted. Daughter No problems noted. Maternal Grandfather Heart disease Cancer Maternal Grandmother , at 38 of suicide Suicide Alcohol abuse Paternal Grandfather , in his 50s of [place] Heart disease Myocardial infarction Paternal Grandmother , at 93 Heart disease Social History Smoking/Tobacco Use Status: Former Tobacco Use Quit Date: 02/12/20 Quit status: considering quitting Second Hand Exposure: Yes Smoking risk assessment performed?: Yes Alcohol Intake: current Alcohol Intake frequency: a few times a week Alcohol type: beer, wine and hard liquor Drug use: Never Substance use type: does not use Caregiver/Support person: No Household members: children Housing: house Communication Needs: None Pets and animals: Yes Pets and animals: cat(s) and dog(s) Sexually active: Yes Do you think of yourself as: straight/heterosexual Current gender identity: decline to answer What is your relationship status?: never How often do you talk on the phone with friends or family?: three or more times per week How often do you get together with friends or relatives?: three or more times per week Do you belong to any clubs or organized social groups?: no Panel score (0-1 are the most socially isolated patients): 1 What type of physical activity do you participate in: decline to answer Duration: 15-30 minutes/day Frequency: 1-2 times per week Antonina/Mormonism: No preference Special antonina needs: No Seatbelt use: always Helmet use: No Drive intox or ride w/intox horse and wagon driver: No Do you feel safe at home: Yes Do you feel safe in your relationship?: Yes Female Reproductive History Menstrual control method: permanent sterilization History History 2 Para 2 Hx # Term Pregnancies Multiple births Hx # Pregnancies Ectopic pregnancies AB induced Hx Number of Living Children 2 AB spontaneous
[2020-04-28 14:38] VITALS: BP 112/74; PULSE 62; RESP 18; TEMP 36.8; O2SAT 96
== END 2020-04-28 16:12 | disposition home or self-care (01) | DRG 743 ==
LOC: PDS 13:12 → OBS 13:13
PROVIDERS: Admitting Provider Obstetrics & Gynecology; PCP Nurse Practitioner Family; Visit Provider Obstetrics & Gynecology
PROC: 0UT9FZZ Resection of Uterus, Via Natural or Artificial Opening With Percutaneous Endoscopic Assistance (ICD-10-PCS; CPT 58552; principal; 2020-04-27 07:30)
DX: N92.5 Other specified irregular menstruation (principal); N83.8 Other noninflammatory disorders of ovary, fallopian tube and broad ligament; N85.2 Hypertrophy of uterus; Z90.710 Acquired absence of both cervix and uterus; G89.18 Other acute postprocedural pain; R10.2 Pelvic and perineal pain; E66.9 Obesity, unspecified; Z98.51 Tubal ligation status; Z98.891 History of uterine scar from previous surgery
CPT/HCPCS: 58552; 36415; 99232; 99238; 85025; 88307; J0131; J0690; J1100; J1200; J1885; J2250; J2405

== ENCOUNTER 2020-06-14 03:12 | Outpatient (CLI) | payer BC, SELFPAY ==
[2020-06-15 09:21] LABS: HBs Antibody, Quant 18.6 mIU/mL (See Note); Hepatitis B Surface Ab Positive (See Note)
[2020-06-15 09:42] LABS: Varicella IgG Antibody Positive (See Note)
[2020-06-15 09:45] LABS: Mumps Antibody IgG Negative (See Note); Rubella IgG Ab (UVM) Negative (See Note)
[2020-06-15 12:02] LABS: Measles IgG Antibody Equivocal (See Note)
== END 2020-06-14 03:32 ==
PROVIDERS: PCP Nurse Practitioner Family; Visit Provider Nurse Practitioner Family
DX: Z01.84 Encounter for antibody response examination (principal)
CPT/HCPCS: 36415; 86706; 86787; 86735; 86762; 86765

== ENCOUNTER 2021-02-28 08:07 | Emergency (ER) | payer BC, SELFPAY ==
[2021-02-28 08:14] VITALS: BP 142/85; PULSE 87; RESP 18; TEMP 36.5; O2SAT 97
--- NOTE | 2021-02-28 08:15 | DI.RAD_ITS ---
Exam(s) XR ANKLE RT COMPLETE EXAM: XR ANKLE RT COMPLETE CLINICAL HISTORY: Ankle injury. TECHNIQUE: 2D digital imaging was performed. COMPARISON: CR LEFT ANKLE COMPLETE from 08/26/2015 FINDINGS: BONES: There is a fracture seen extending transversely through the tip of the lateral malleolus which is nondisplaced. There is adjacent soft tissue swelling. No additional fractures are seen. No bon y destructive lesion is seen. Plantar calcaneal spur. JOINTS: The ankle mortise is normally aligned. SOFT TISSUE: Swelling around lateral malleolus. IMPRESSION: Nondisplaced fracture lateral malleolus. DATA REPOSITORY: RADIATION DOSE DELIVERED:
--- NOTE | 2021-02-28 08:19 | ED.GENADUL_ITS ---
Discharge Plan Disposition Patient Disposition: HOME Condition: Stable Discharge Details Clinical Impression: Closed fracture of distal end of right fibula Primary Care Provider: Lexy Lambert ED Provider: Reyna Bailey Home Meds and New Rx's Prescriptions: No Action valacyclovir 1 gram tablet 2,000 mg PO ONCE PRN (Reason: cold sores) Qty: 60 RF: 2 losartan 25 mg tablet 25 mg PO DAILY Qty: 90 RF: 4 Centrum Complete 1 EACH tablet 1 tab-cap PO DAILY RF: 0 omega 0-fdf-zya-fish oil [Fish Oil] 1,000 MG capsule 1,000 mg PO DAILY RF: 0 fluoxetine 40 mg capsule 40 mg PO DAILY Qty: 90 RF: 4 Discharge Instructions Instructions: Leg Fracture (ED), Splint Care (ED) Additional Instructions: Do not get splint wet. Toe-touch weightbearing as tolerated. Rest ice compression elevation when sitting or lying down. If your toes become cold blue numb or tingly please loosen the Kwesi wrap. Follow-up with orthopedics. Call in Next 2 to 3 days for an appointment. Please take Tylenol or Ibuprofen with food every 4-6 hours as needed for pain and swelling. Return to the ER for any problems with circulation, severe increase in pain or any concerns. Stand Alone Forms: Work Release Referrals: Phil Bolton MD [ [facility] STAFF PHYSICIAN] - Discharge Data Discharge Date/Time-TO BE ENTERED AT DEPARTURE: 02/28/21 10:00 Medical Decision Making 40-year-old female presents the ER with chief complaint of right ankle pain and swelling, patient states that she stepped into a hole this morning outside rolled her ankle heard a pop and had excruciating pain. She is complaining of lateral malleolus tenderness. Has swelling no obvious deformity. Did not take any medications prior to arrival did not eat anything. No other injuries did not hit her head. She has a past medical history of hypertension depression, obesity. XR ordered, Ibuprofen CLINICAL HISTORY: Ankle injury. TECHNIQUE: 2D digital imaging was performed. COMPARISON: CR LEFT ANKLE COMPLETE from 08/26/2015 FINDINGS: BONES: There is a fracture seen extending transversely through the tip of the lateral malleolus which is nondisplaced. There is adjacent soft tissue swelling. No additional fractures are seen. No bony destructive lesion is seen. Plantar calcaneal spur. JOINTS: The ankle mortise is normally aligned. SOFT TISSUE: Swelling around lateral malleolus. IMPRESSION: Nondisplaced fracture lateral malleolus. 0901: Ortho paged: Dr. Bolton notified of patient will have patient follow up with Ortho in 1-2 weeks. Discussed home care and follow-up with patient who verbalized understanding. Patient was able to demonstrate proper crutch technique prior to discharge. HPI General Mode of arrival: ambulatory . Date/Time Provider Initiated Documentation: 02/28/21 08:15 . Limitations to Documentation: no limitations . Information obtained by: patient . HPI Narrative: 40-year-old female presents the ER with chief complaint of right ankle pain and swelling, patient states that she stepped into a hole this morning outside rolled her ankle heard a pop and had excruciating pain. She is complaining of lateral malleolus tenderness. Has swelling no obvious deformity. Did not take any medications prior to arrival did not eat anything. No other injuries did not hit her head. She has a past medical history of hypertension depression, obesity. Related Data Home Medications Medication Instructions Recorded Confirmed Centrum Complete 1 tab-cap PO DAILY tab-cap 03/23/15 02/28/21 omega 6-hti-vsz-fish oil [Fish Oil] 1,000 mg PO DAILY 07/02/16 02/28/21 valacyclovir 1 gram tablet 2,000 mg PO ONCE PRN #60 tab 02/08/20 02/28/21 fluoxetine 40 mg capsule 40 mg PO DAILY #90 cap 02/02/21 02/28/21 losartan 25 mg tablet 25 mg PO DAILY #90 tab-cap 02/09/21 02/28/21 Previous Rx's Medication Instructions Recorded valacyclovir 1 gram tablet 2,000 mg PO ONCE PRN #60 tab 02/08/20 fluoxetine 40 mg capsule 40 mg PO DAILY #90 cap 02/02/21 losartan 25 mg tablet 25 mg PO DAILY #90 tab-cap 02/09/21 Allergies Allergy/AdvReac Type Severity Reaction Status Date / Time oxycodone HCl [From Percocet] Allergy Intermediate HIVES, Verified 02/28/21 08:19 rash & hallucinations General Stated Complaint: Orthopedic DINORAH: 4 Review of Systems All systems reviewed & are unremarkable except as noted in HPI and below Musculoskeletal Musculoskeletal: Reports as per HPI, Denies deformity, Reports arthralgias (Right ankle) and Reports joint swelling [facility] Medical History Abnormal Pap smear of cervix (2007) LSIL, +HPV 09/22, 06/25, 05/25, 09/24 ASCUS, -HPV 08/2011 Negative Pap, +HPV 08/2017 Abnormal uterine bleeding Cigarette smoker Depressive disorder Essential hypertension Obesity Sensorineural hearing loss of left ear High-frequency only. Chronic tinnitus Surgical History History of section (06/06/10) S/P laparoscopic assisted vaginal hysterectomy (LAVH) (04/27/20) with bilateral salpingectomy S/P tubal ligation (10/11/10) Status post ORIF of fracture of ankle (06/16/15) Left ankle Family History Mother Alcohol abuse Essential hypertension Depression Heart disease Father Essential hypertension Heart disease Hyperlipidemia Sister No problems noted. Sister No problems noted. Son No problems noted. Daughter No problems noted. Maternal Grandfather Heart disease Cancer Maternal Grandmother , at 38 of suicide Suicide Alcohol abuse Paternal Grandfather , in his 50s of [place] Heart disease Myocardial infarction Paternal Grandmother , at 93 Heart disease Social History Smoking/Tobacco Use Status: Current-Occasional Tobacco Type: cigarettes Second Hand Exposure: Yes Smoking risk assessment performed?: Yes Alcohol Intake: current Alcohol Intake frequency: holidays/special occasions only Alcohol type: wine Drug use: Never Substance use type: does not use Caregiver/Support person: No Housing: house Communication Needs: None Do you need help understanding health information?: Never Pets and animals: Yes Pets and animals: cat(s) and dog(s) Sexually active: Yes Do you think of yourself as: straight/heterosexual Current gender identity: female What is your relationship status?: living with partner How often do you talk on the phone with friends or family?: three or more times per week How often do you get together with friends or relatives?: three or more times per week Do you belong to any clubs or organized social groups?: no Panel score (0-1 are the most socially isolated patients): 2 What type of physical activity do you participate in: walking and weight lifting Antonina/Yazdanism: No preference Special antonina needs: No Seatbelt use: always Helmet use: Yes Helmet use: always Drive intox or ride w/intox explosives truck driver: No Do you feel safe at home: Yes Do you feel safe in your relationship?: Yes Female Reproductive History Menstrual control method: permanent sterilization History History 2 Para 2 Hx # Term Pregnancies Multiple births Hx # Pregnancies Ectopic pregnancies AB induced Hx Number of Living Children 2 AB spontaneous Exam Extrem Right lower extremity: normal capillary refill and ankle Details: tenderness Lo cation: of the lateral malleolus Course Vital Signs Vital signs: Vital Signs Temperature 36.5 C 02/28/21 08:14 Pulse 87 02/28/21 08:14 Respiratory Rate 18 02/28/21 08:14 Blood Pressure 142/85 H 02/28/21 08:14 Pulse Oximetry 97 02/28/21 08:14 Temperature 36.5 C 02/28/21 08:14 Temperature Source Oral 02/28/21 08:14 Pulse 87 02/28/21 08:14 Respiratory Rate 18 02/28/21 08:14 Respiratory Effort Non-Labored 02/28/21 08:18 Blood Pressure 142/85 H 02/28/21 08:14 Blood Pressure Position Supine 02/28/21 08:14 Pulse Oximetry 97 02/28/21 08:14 Oxygen Delivery Method Room Air 02/28/21 08:14 Oxygen Flow Rate 0 02/28/21 08:14 Pain Level 8 02/28/21 08:14 Procedures Orthopedic Splinting/Casting Injury #1: Side: right Lower Extremity Injury Location: ankle (Distal fibula) Lower Extremity Immobilizer: posterior splint, stirrup splint and Kwesi wrap Other Orthopedic Equipment: crutches Additional Comments: Posterior stirrup splint applied with plaster and web roll. Patient tolerated well. CMS intact post application.
[2021-02-28] MEDS: Ibuprofen 600 MG TAB PO (08:23)
--- OUTSIDE RECORDS SUMMARY | 2021-02-28 08:48 | XMS_ITS ---
:1980 Author Care Team Providers Name Role Phone [facility] MEDICAL RECORDS Primary Care Provider [phone] LAURIE GÓMEZ MD Primary Care Provider [phone] Allergies Code Code System Name Reaction Severity Status Onset 4335 RxNorm Oxycodone ? ? Active ? Medications Name Status Start Date Stop Date ? ? fluoxetine 40 mg capsule Active ? Not hernesto ilable Take 1 capsule every day by oral route. losartan 50 mg tablet Active ? Not availa ble Take 1 tablet every day by oral route. multivitamin Active ? Not available 1 tab dialy Sterling 3-6-9 Active ? Not available 1 cap daily valacyclovir 1 gram tablet Active ? Not a vailable Take 1 tablet every 12 hours by oral route. zolpidem 5 mg tablet Active ? Not availab le take 1-2 PO for sleep study PRN Problems Name Status Onset Date Source ? Depressive Disorder Active 09/10/2018 ? Essential Hypertension Active 09/10/2018 ? Idiopathic Scoliosis Active 09/10/2018 ? Snoring Active 09/10/2018 ? Prediabetes Active 09/10/2018 ? Fracture of Ankle Active 09/10/2018 ? Cigarette Smoker Active 09/10/2018 ? Procedures Date Name Performed by ? 09/11/2018 Polysomnogram Information not avai lable Results Lab Results None recorded. Past Encounters None recorded. Social History Tobacco Smoking Status Current Every Day Smoker Notes: 1 pack per week yaima, started age 17 Vaccine List None recorded. Plan of Care Reminders Provider Appointments None ? ? recorded. Lab None ? ? recorded. Referral None ? ? recorded. Procedures None ? ? recorded. Surgeries None ? ? recorded. Imaging None ? ? recorded. Vitals Height Weight BMI Blood Pressure 165.1 cm 100.24 kg 36.8 kg/m2 112/78 mm[Hg]
[2021-02-28] MEDS: Acetaminophen 500 MG TAB (12:13)
== END 2021-02-28 10:00 | disposition home or self-care (01) ==
PROVIDERS: Emergency Provider Registered Nurse Emergency; PCP Nurse Practitioner Family
DX: S82.831A Other fracture of upper and lower end of right fibula, initial encounter for closed fracture (principal); X50.1XXA Overexertion from prolonged static or awkward postures, initial encounter
CPT/HCPCS: 29515; 99283; 73610

== ENCOUNTER 2021-03-27 09:34 | Outpatient (CLI) | payer BC, SELFPAY ==
--- NOTE | 2021-03-27 09:15 | DI.RAD_ITS ---
Exam(s) XR ANKLE RT COMPLETE EXAM: XR ANKLE RT COMPLETE CLINICAL HISTORY: rigth fibula fx f/u TECHNIQUE: COMPARISON: CR XR ANKLE RT COMPLETE from 02/28/2021 FINDINGS: Three views were obtained. Previously described fracture of the tip of the lateral malleolus is agai n noted, no change in alignment comparison with examination February 28. The ankle mortise is wel l maintained. No other specific abnormality seen. IMPRESSION: RADIATION DOSE DELIVERED: Total DLP
== END 2021-03-27 09:35 | disposition home or self-care (01) ==
LOC: DIORS 09:34
PROVIDERS: PCP Nurse Practitioner Family; Referring Provider Nurse Practitioner Family; Visit Provider Student in an Organized Health Care Education/Training Program
DX: S82.831D Other fracture of upper and lower end of right fibula, subsequent encounter for closed fracture with routine healing (principal)
CPT/HCPCS: 73610

== ENCOUNTER 2021-06-13 15:59 | Outpatient (REF) | payer BC, SELFPAY ==
[2021-06-15 10:34] LABS: COVID-19 RT-PCR UVMMC Result Negative (Negative)
== END 2021-06-13 16:00 | disposition home or self-care (01) ==
LOC: LBN 15:59
PROVIDERS: PCP Nurse Practitioner Family; Visit Provider Nurse Practitioner Family
DX: J02.9 Acute pharyngitis, unspecified (principal); Z20.822 Contact with and (suspected) exposure to COVID-19
CPT/HCPCS: U0003; 87070

== ENCOUNTER 2023-01-17 02:58 | Outpatient (CLI) | payer BC, SELFPAY ==
--- NOTE | 2023-01-17 07:45 | DI.MAMMO_ITS ---
Exam(s) MAMMO SCREENING EXAM: MAMMO SCREENING CLINICAL HISTORY: screening, Z12.39 TECHNIQUE: Mammograms were interpreted according to the usual protocol including computer analysis w [employer] CAD system, tomosynthesis and C-view imaging. COMPARISON: No exams were available for comparison. Baseline exam. FINDINGS: The breasts are composed of scattered fibroglandular densities, Breast Density category B. No suspicious masses or suspicious microcalcifications are seen. No skin thickening or abnormal axillary lymph nodes are seen. IMPRESSION: BI-RADS Category 1, Negative mammogram Yearly screening mammography is recommended. Breast Density - Category B, scattered fibroglandular densities. A negative radiographic report should not delay biopsy if a dominant or clinically suspicious mass is present. Up to ten percent of cancers are not identified on mammography. A negative report may reinforce clinical impression. Adenosis and dense breasts may obscure an underlying neoplasm. False positive reports average 6 to 10%. Patient will receive a letter notifying them of these results.
== END 2023-01-17 03:18 ==
LOC: DI 02:58
PROVIDERS: PCP Nurse Practitioner Family; Visit Provider Nurse Practitioner Family
DX: Z12.31 Encounter for screening mammogram for malignant neoplasm of breast (principal)
CPT/HCPCS: 77063; 77067

== ENCOUNTER 2023-01-17 04:25 | Outpatient (CLI) | payer BC, SELFPAY ==
[2023-01-17 08:22] LABS: Hemoglobin A1C 5.2 % (<5.7)
[2023-01-17 09:11] LABS: ALT 65 U/L (14-59); AST 32 U/L (15-37); Albumin 3.9 g/dL (3.4-5.0); Alkaline Phosphatase 68 U/L (46-116); Anion Gap 10.2 mmol/L (3-11); BUN 11 mg/dL (7-18); Bilirubin, Total 0.4 mg/dL (0.2-1.0); CO2 26.8 mmol/L (21.0-32.0); CREATININE 0.8 mg/dL (0.55-1.02); Calcium 8.9 mg/dL (8.5-10.1); Calculated LDL 81 mg/dL (<100); Chloride 103 mmol/L (98-107); Cholesterol 174 mg/dL (<200); Estimated GFR 94.87 (mL/min/1.73m2); Glucose 108 mg/dL (74-106); HDL Cholesterol 54 mg/dL (40-60); Potassium 4.2 mmol/L (3.5-5.1); Sodium 140 mmol/L (136-145); Total Protein 7.4 g/dL (6.4-8.2); Triglyceride 196 mg/dL (<150)
== END 2023-01-17 04:26 | disposition home or self-care (01) ==
PROVIDERS: PCP Nurse Practitioner Family; Visit Provider Nurse Practitioner Family
DX: I10 Essential (primary) hypertension (principal); F32.89 Other specified depressive episodes; Z79.899 Other long term (current) drug therapy; R79.89 Other specified abnormal findings of blood chemistry
CPT/HCPCS: 36415; 80053; 80061; 83036

== ENCOUNTER 2023-11-01 12:41 | Outpatient (CLI) | payer BC, SELFPAY ==
[2023-11-01 10:57] LABS: ALT 67 U/L (14-59); AST 28 U/L (15-37); Albumin 3.7 g/dL (3.4-5.0); Alkaline Phosphatase 60 U/L (46-116); Anion Gap 12.1 mmol/L (3-11); BUN 14 mg/dL (7-18); Bilirubin, Total 0.5 mg/dL (0.2-1.0); CO2 21.9 mmol/L (21.0-32.0); CREATININE 0.7 mg/dL (0.55-1.02); Calcium 8.6 mg/dL (8.5-10.1); Chloride 106 mmol/L (98-107); Estimated GFR 110.67 (mL/min/1.73m2); Glucose 127 mg/dL (74-106); Potassium 3.8 mmol/L (3.5-5.1); Sodium 140 mmol/L (136-145)
[2023-11-01 19:44] LABS: Hepatitis C Ab w Rflx HCV PCR Negative (Negative)
[2023-11-01 21:02] LABS: HBs Antibody, Quant 8.2 mIU/mL (See Note); Hepatitis B Surface Ab Negative (See Note)
[2023-11-04 10:32] LABS: Varicella IgG Antibody Positive (See Note)
[2023-11-04 10:35] LABS: Mumps Antibody IgG Negative (See Note); Rubella IgG Ab (UVM) Positive (See Note)
[2023-11-04 13:38] LABS: TB Interpretation Negative (Negative); TB1 Ag minus Nil 0.01 IU/ml
[2023-11-04 14:05] LABS: Hemoglobin S Screen Negative (Negative)
[2023-11-04 15:46] LABS: Measles IgG Antibody Equivocal (See Note)
== END 2023-11-01 12:42 | disposition home or self-care (01) ==
LOC: LBO 12:41
PROVIDERS: PCP Nurse Practitioner Family; Visit Provider Nurse Practitioner Family
DX: Z02.0 Encounter for examination for admission to educational institution (principal); Z11.59 Encounter for screening for other viral diseases; Z00.00 Encounter for general adult medical examination without abnormal findings
CPT/HCPCS: 36415; 80053; 86706; 86787; 86803; 85660; 86480; 86735; 86762; 86765

== ENCOUNTER 2024-08-10 11:20 | Emergency (ER) | payer BC, SELFPAY ==
[2024-08-10 11:38] VITALS: BP 149/96; PULSE 87; RESP 18; TEMP 36.6; O2SAT 96
== END 2024-08-10 12:47 | disposition left against medical advice (07) ==
LOC: ER 11:25
PROVIDERS: PCP Nurse Practitioner Family
DX: Z53.21 Procedure and treatment not carried out due to patient leaving prior to being seen by health care provider (principal)